=== PATIENT | male | born 1960 | race Caucasian/White ===

== ENCOUNTER → 2018-01-16 | Day surgery (SDC) | payer OTHER ==
[~2018-01-16] VITALS: Ht 180.3 cm; Wt 96.2 kg
--- NOTE | 2018-01-16 12:41 | Operative Report ---
Operative/Inv Procedure Report Surgery Date: 01/16/18 Name of Procedure: Right knee prepatellar bursectomy, patellar tendon debridement Pre-Operative Diagnosis: Right knee prepatellar bursitis Post-Operative Diagnosis: Right knee prepatellar bursitis Estimated Blood Loss: scant Surgeon/Discovery Guide: Kael Montague MD Anesthesia: laryngeal mask airway Complications: None Condition: Stable to PACU Operative Indication: This is a 57-year-old male with a history of recurrent right prepatellar bursitis. He has failed conservative care.Risks and benefits of the procedure were discussed with the patient at length. Risks include but are not limited to nerve damage, muscle damage, infection, blood loss, blood clots, pulmonary embolus, and even . The patient agreed to the above risks and elected to proceed with surgery. Operative/Procedure Note Note: The patient was placed supine on the operating room table. A tourniquet was applied. The lower extremity prepped and draped in normal sterile fashion. A timeout was performed before the incision. The site marking was visualized before incision. After the leg was prepped and draped, an Esmarch was used to exsanguinate the extremity. The tourniquet was inflated. A midline incision was made extending his previous incision where he had a previous prepatellar bursectomy. Skin flaps were developed. The bursa overlying the tibial tubercle and patellar tendon was identified and excised sharply. There was fibrinous degeneration in the intrasubstance of the patellar tendon which was debrided with a rongeur. It was copiously irrigated and sent for pathology. The tourniquet was let down. Any bleeding vessels were identified and cauterized. The wound was copiously irrigated. The incision was closed with 2-0 vicryl suture in a running subcuticular 3-0 Prolene stitch. A dry sterile dressing was applied and the patient was transferred to PACU in stable condition.
== END ==
LOC: STS 01:14
DX: M70.41 Prepatellar bursitis, right knee (principal); I10 Essential (primary) hypertension; I25.10 Atherosclerotic heart disease of native coronary artery without angina pectoris; I25.2 Old myocardial infarction
CPT/HCPCS: J0131; J0690; J2250